=== PATIENT | male | born 1955 | race Caucasian/White ===

== ENCOUNTER 2024-11-10 12:50 | Outpatient (CLI) | payer OTHER, SELFPAY ==
--- OUTSIDE RECORDS SUMMARY | 2024-11-10 13:54 | XMS_ITS | Encounter Summary ---
Author Organization [facility] Address [facility] [place] [address] Care Team Providers Care Costume Technician Name Role Phone Omar Gardiner DO Primary Care Provider [phone] Encounter Details Date Type Department Care Team (Late Contact Info) Description 04/14/2024 MyChart Message Enc [facility] 5 [place] [address] Omar Gardiner DO [address] [place] [address] Dizziness Social History Tobacco Use Types Packs/Day Years Used Date Smoking Tobacco: Former Cigarettes 3 35 0 10/31/1974 - 10/31/2009 Smokeless Tobacco: Never Alcohol Use Standard Drinks/Week Comments Not Currently 13.3 (1 standard dri nk = 0.6 oz pure alcohol) pt has about 8 beers a day PHQ-2 Answer Date Recorded Patient Health Questionnaire-2 Score 2 09/10/2022 Sex and Gender Information Value Date Recorded Sex Assigned at Not on file Legal Sex Male 11:43 AM LITERARY AGENT Gender Identity Not on file Sexual Orientation Not on file documented as of this encounter Plan of Treatment Upcoming Encounters Date Type Department Care Team (Late Contact Info) Description 05/25/2025 2:20 PM CDT Office Visit [facility] 5 [place] [address] Omar Gardiner DO [address] [place] [address] documented as of this encounter Visit Diagnoses Not on filedocumented in this encounter Additional Health Concerns Assessment Noted Time PHQ-9 Depression Total Score: 6 09/10/19 23 9:06 AM LITERARY AGENT documented as of this encounter Care Teams Costume Technician Relationship Specialty Start Date End Date Omar Gardiner DO [address] [place] [address] PCP - General FAMILY PRACTICE 08/02/22 documented as of this encounter
--- OUTSIDE RECORDS SUMMARY | 2024-11-10 13:54 | XMS_ITS | Encounter Summary ---
Author Organization [facility] Address [facility] [place] [address] Care Team Providers Care Insurance Sales Associate Name Role Phone Omar Gardiner DO Primary Care Provider [phone] Encounter Details Date Type Department Care Team (Late Contact Info) Description 12/01/2022 [facility] [employer] Message Enc [facility] - [place] [address] [place] [address] Omar Gardiner DO 5 [place] [address] Upcoming lipid panel. Social History Tobacco Use Types Packs/Day Years [...] on file Legal Sex Male 11:43 AM WEB SOLUTIONS ARCHITECT Gender Identity Not on file Sexual Orientation Not on file COVID-19 Exposure Response Date Recorded In the last 10 days, have yo u been in contact with someone who was confirmed or suspected to have Coronavirus/COVID-19? No / Unsure 11/13/2022 3:11 PM CDT documented as of this encounter Plan of Treatment Upcoming Encounters Date Type Department Care Team (Late Contact Info) Description 05/25/2025 2:20 PM CDT Office Visit [facility] Family Medicine - [place] 5 [facility] [place] [address] Omar Gardiner DO [address] [place] [address] documented as of this encounter Visit Diagnoses Not on filedocumented in this encounter Additional Health Concerns Assessment Noted Time PHQ-9 Depression Total Score: 6 09/10/19 23 9:06 AM WEB SOLUTIONS ARCHITECT documented as of this encounter Care Teams Insurance Sales Associate Relationship Specialty Start Date End Date Omar Gardiner DO [address] [place] [address] PCP - General FAMILY PRACTICE 08/02/22 documented as of this encounter
--- OUTSIDE RECORDS SUMMARY | 2024-11-10 13:55 | XMS_ITS | Encounter Summary ---
Author Organization [facility] Address [facility] [place] [address] Care Team Providers Care Cement Sack Breaker Name Role Phone Omar Gardiner DO Primary Care Provider Encounter Details Date Type Department Care Team (Late Contact Info) Description 10/08/2022 [employer] Message Enc [facility] Family Medicine - [place] [address] [place] [address] Omar Gardiner DO 5 [place] [address] Physical therapy for my hip Social History Tobacco Use Types Packs/Day Years Used Date Smoking Tobacco: Former Cigarettes 3 35 Smokeless Tobacco: Never Alcohol Use Standard Drinks/Week Comments Not Currently 13.3 (1 standard dri nk = 0.6 oz pure alcohol) pt has about 8 beers a day PHQ-2 Answer Date Recorded Patient Health Questionnaire-2 Score 2 09/10/2022 Sex and Gender Information Value Date Recorded Sex Assigned at Not on file Legal Sex Male 11:43 AM FINANCIAL FOUNDATIONS REPRESENTATIVE Gender Identity Not on file Sexual Orientation Not on file COVID-19 Exposure Response Date Recorded In the last 10 days, have yo u been in contact with someone who was confirmed or suspected to have Coronavirus/COVID-19? No / Unsure 10/08/2022 8:47 AM FINANCIAL FOUNDATIONS REPRESENTATIVE documented as of this encounter Plan of Treatment Upcoming Encounters Date Type Department Care Team (Late Contact Info) Description 05/25/2025 2:20 PM CDT Office Visit [facility] Family Medicine - [place] [address] [place] [address] Omar Gardiner DO [address] [place] [address] documented as of this encounter Visit Diagnoses Not on filedocumented in this encounter Additional Health Concerns Assessment Noted Time PHQ-9 Depression Total Score: 6 09/10/19 23 9:06 AM FINANCIAL FOUNDATIONS REPRESENTATIVE documented as of this encounter Care Teams Cement Sack Breaker Relationship Specialty Start Date End Date Omar Gardiner DO [address] [place] [address] PCP - General FAMILY PRACTICE 08/02/22 documented as of this encounter
--- OUTSIDE RECORDS SUMMARY | 2024-11-10 13:55 | XMS_ITS | Encounter Summary ---
Author Organization [facility] Address [address] [place] [address] Care Team Providers Care Environmental Services Attendant Name Role Phone Omar Gardiner DO Primary Care Provider Encounter Details Date Type Department Care Team (Late Contact Info) Description 10/03/2022 [employer] Message Enc [facility] 5 [place] [address] Omar Gardiner DO [address] [place] [address] Lipid panel Social History Tobacco Use Types Packs/Day Years Used Date Smoking Tobacco: Former Cigarettes Smokeless Tobacco: Never Alcohol Use Standard Drinks/Week Comments Yes 13.3 (1 standard drink = 0.6 oz pure alcohol) pt has about 8 beers a day PHQ-2 Answer Date Recorded Patient Health Questionnaire-2 Score 2 09/10/2022 Sex and Gender Information Value Date Recorded Sex Assigned at Not on file Legal Sex Male 11:43 AM JEWELRY MOLD MAKER Gender Identity Not on file Sexual Orientation Not on file COVID-19 Exposure Response Date Recorded In the last 10 days, have yo u been in contact with someone who was confirmed or suspected to have Coronavirus/COVID-19? No / Unsure 10/03/2022 9:00 AM JEWELRY MOLD MAKER documented as of this encounter Plan of Treatment Upcoming Encounters Date Type Department Care Team (Late Contact Info) Description 05/25/2025 2:20 PM CDT [facility] [address] [place] [address] Omar Gardiner DO [address] [place] [address] documented as of this encounter Visit Diagnoses Not on filedocumented in this encounter Additional Health Concerns Assessment Noted Time PHQ-9 Depression Total Score: 6 09/10/19 23 9:06 AM JEWELRY MOLD MAKER documented as of this encounter Care Teams Environmental Services Attendant Relationship Specialty Start Date End Date Omar Gardiner DO [address] [place], [place] [id number] PCP - General FAMILY PRACTICE 08/02/22 documented as of this encounter
--- OUTSIDE RECORDS SUMMARY | 2024-11-10 13:55 | XMS_ITS | Clinical Summary ---
Author Organization [facility] Address [facility] [place] [address] Care Team Providers Care Artificial Limb Maker Name Role Phone AbdifatahYanni proctor Primary Care Provider [phone] Allergies No known active allergies Medications sildenafil (VIAGRA) 100 MG tablet Take 1 tablet (100 mg total) by mouth daily as needed for Erectile Dysfunction. Active aspirin 81 MG chewable tabletIndications :Primary hypertension Chew 1 tablet (81 mg total) by mouth daily. 30 tablet 3 Active amLODIPine (NORVASC) 10 MG tabletIndications :Primary hypertension Take 1 tablet (10 mg total) by mouth daily. 90 tablet 3 4 Active lisinopril (PRINIVIL) 20 MG tabletIndications :Primary hypertension Take 1 tablet (20 mg total) by mouth daily. 90 tablet 3 4 Active Active Problems Problem Noted Date Diagnosed Date Anxiety disorder, unspecified type 05/24/2024 Centrilobular emphysema ([facility]) 2023 intermediate (current) use of aspirin 10/16/2023 Overview (05/24/2024): Last Assessment & Plan: Condition: stable Follow up in: six months with PCP Essential hypertension 10/08/2022 Overview (05/24/2024): Last Assessment & Plan: Condition: stable Source of diagnosis: Vital signs, Medication and Diagnosis confirmed from PCP record and currently active Discussed target blood pressure. Continue medication as prescribed from PCP/specialist. Take medications at the same time every day. Lifestyle modification advised: DASH diet, reduce stress/anxiety, discussed health weight management, activity as tolerated or advised from PCP, try to avoid alcohol and nicotine. Follow up in: six months with PCP Mixed hyperlipidemia 10/08/2022 Uncomplicated alcohol dependence (CMS/HCC HHS/HC C) 09/10/2022 Hepatomegaly 09/10/2022 Resolved Problems Problem Noted Date Diagnosed Date Resolved Date Facial pain 06/25/2023 05/24/2024 Cigarette nicotine dependenc e without complication 10/08/2022 10/08/2022 Encounters Date Type Department Care Team Description 09/23/2024 3:20 PM PRESS SMITH HELPER Office Visit [facility] Family Medicine - [address] [address] Gretel Holloway NP Hearing Problem (Patient wants to see about getting a referral for an Fagot Heater Helper. ) 09/23/2024 Travel from Last 3 Months Immunizations Name Administration Dates Next Due Fluzone High Dose (IIV, trivalent, 0.5mL) 2023 Fluzone High Dose - >Age 65 (Prefilled Syringe) 05/14/2023,09/10/2022 PFIZER COVID-19 (12+) MRNA, LNP-S, PF, ALESSANDRO-SUCROSE, 30 MCG/0.3 ML (COMIRNATY) 05/24/2024 Pneumococcal (Prevnar 20) 10/31/2022 Tdap (Adacel) 09/10/2022 Family History Medical History Relation Comments Vision loss Daughter Vision loss Father Alcohol Abuse Mother Cancer Mother Vision loss Mother Vision loss Sister Vision loss Son Relation Status Comments Daughter Father Mother Sister Son Social History Tobacco Use Types Packs/Day Years Used Date Smoking Tobacco: Former Cigarettes 3 35 0 10/31/1974 - 10/31/2009 Passive Smoke Exposure: Past Smokeless Tobacco: Never Tobacco Cessation:Counseling Given: Not Answered Alcohol Use Standard Drinks/Week Comments Yes 13.3 (1 standard drink = 0.6 oz pure alcohol) pt has about 8 beers a day PHQ-2 Answer Date Recorded Patient Health Questionnaire-2 Score 1 05/24/2024 Sex and Gender Information Value Date Recorded Sex Assigned at Not on file Legal Sex Male 11:43 AM PRESS SMITH HELPER Gender Identity Not on file Sexual Orientation Not on file Last Filed Vital Signs Vital Sign Reading Time Taken Comments Blood Pressure 131/77 09/23/2024 3:42 PM PRESS SMITH HELPER Pulse 72 09/23/2024 3:35 PM PRESS SMITH HELPER Temperature 37.2 C (99 F) 09/23/2024 3:35 PM PRESS SMITH HELPER Respiratory Rate 16 12/05/2022 11:00 AM CDT Oxygen Saturation 98% 09/23/2024 3:35 PM PRESS SMITH HELPER Inhaled Oxygen Concentration - - Weight 83.7 kg (184 lb 8 oz) 09/23/2024 3:35 PM PRESS SMITH HELPER Height 173.1 cm (5' 8.15 ) 09/23/2024 3:35 PM CS T Body Mass Index 27.93 09/23/2024 3:35 PM PRESS SMITH HELPER Plan of Treatment Upcoming Encounters Date Type Department Care Team (Late st Contact Info) Description 05/25/2025 2:20 PM CDT Office Visit [facility] Family Medicine - [address] [id number] Yanni Gardiner, [place] [address] Health Maintenance Due Date Last Done Comments Zoster Vaccines (1 of 2) 2007 RSV Immunization or 60+ Years (1 - Risk 60-74 years 1-dose series) 2017 Annual Medicare Wellness Visit 2022 PHQ-2 (Physician [place]) 08/18/2024 05/24/2024 Lung Cancer Screening 03/04/2025 03/04/2024 , 11/13/2022 Colorectal Cancer Screening FIT-DNA (3 Years) 09/25/2025 09/25/2022, 09/25/2022 DTaP, Tdap and Td Vaccines ( 2 - Td or Tdap) 09/10/2032 09/10/2022 Hepatitis C Completed 09/13/2022 AAA SCREENING Completed 10/03/2022 Pneumococcal Vaccine: 65+ Years Completed 10/31/2022 COVID-19 Vaccine Completed 05/24/2024, 12/15/2020, 11/17/2020 Influenza Adult Completed 05/24/2024, 05/14/2023, 09/10/2022 Meningococcal B Vaccine Aged Out No l onger eligible based on patient's age to complete this topic Meningococcal Vaccine Aged Out No calli markell eligible based on patient's age to complete this topic RSV Immunizations Under 20 Months Aged Out No longer eligible b ased on patient's age to complete this topic Procedures Procedure Name Priority Date/Time Associated Diagnosis Comments CT LUNG SCREENING Routine 03/04/2024 2:4 3 PM CDT Nicotine dependence, cigarettes, in remission US AORTA Routine 10/03/2022 10:41 AM PRESS SMITH HELPER Screening for AAA (abdominal aortic aneurysm) COLOGUARD (EXACT SCIENCE) Routine 09/25/2022 7:52 AM PRESS SMITH HELPER Screening for malignant neoplasm of colon HEPATITIS PANEL,ACUTE Routine 09/13/2022 7:12 PM PRESS SMITH HELPER Hepatomegaly from Last 3 Months or Most Recently Relevant to Health Maintenance Results * CT LUNG SCREENING (03/04/2024 2:43 PM CDT) Anatomical Region Laterality Modality Chest Computed Tomogra phy 03/11/2024 6:09 AM CDT Impressions 03/11/2024 6:14 AM CDT IMPRESSION: 1. LUNG-RADS category 2: Benign, attention on behavior on followup 2. LUNG-RADS category S: Negative 3. Other incidental findings as above. RECOMMENDATIONS: Follow-up LDCT Chest in 12 months (on or around February 2025). Referred By: YANNI GARDINER Interpreted By: Jake Nathan MD, 03/11/2024 6:09 AM Narrative 03/11/2024 6:14 AM CDT EXAM: LUNG SCREENING LOW-DOSE CT THORAX WITHOUT CONTRAST DATE: 03/04/2024 HISTORY: Asymptomatic patient meeting NCCN high-risk criteria for lung screening. Smoking history LUNG CANCER SCREENING, >= 20 PK-YR SMOKING HISTORY (AGE >= 50Y) Is the patient between 50 and 77 years old? Yes Does the patient have any symptoms of or has the patient ever been diagnosed with lung cancer? No Is the patient a current smoker? No Has the patient quit smoking within the last 15 years? Yes What is the approximate date that the patient quit smoking? 14 years ago How many years has the patient smoked? 30 years How many packs per day? 2-3 COMPARISON: 11/13/2022 TECHNIQUE: Noncontrast, helical, low-dose CT (LDCT) chest per standard departmental protocol. Automated exposure control was utilized for dose reduction. FINDINGS: Lung Screening Specific (LUNG-RADS): New tree-in-bud micronodules in RUL, image 58, up to 4 mm size = likely granulomata Old granulomata calcifications Small fissure nodes Potentially Significant Incidentals (LUNG-RADS category S): None. Pulmonary Incidentals: Mild-moderate COPD emphysema with apical scars. Other Incidentals: CAD calcifications. Spondylosis. Procedure Note Jake Nathan MD - 03/11/2024 EXAM: LUNG SCREENING LOW-DOSE CT THORAX WITHOUT CONTRAST DATE: 03/04/2024 HISTORY: Asymptomatic patient meeting NCCN high-risk criteria for lungscreening. Smoking history LUNG CANCER SCREENING, >= 20 PK-YR SMOKING HISTORY (AGE >= 50Y) Is the patient between 50 and 77 years old? Yes Does the patient have any symptoms of or has the patient ever beendiagnosed with lung cancer? No Is the patient a current smoker? No Has the patient quit smoking within the last 15 years? Yes What is the approximate date that the patient quit smoking? 14 years ago How many years has the patient smoked? 30 years How many packs per day? 2-3 COMPARISON: 11/13/2022 TECHNIQUE: Noncontrast, helical, low-dose CT (LDCT) chest per standarddepartmental protocol. Automated exposure control was utilized for dosereduction. FINDINGS: Lung Screening Specific (LUNG-RADS): New tree-in-bud micronodules in RUL, image 58, up to 4 mm size = likelygranulomata Old granulomata calcifications Small fissure nodes Potentially Significant Incidentals (LUNG-RADS category S): None. Pulmonary Incidentals: Mild-moderate COPD emphysema with apical scars. Other Incidentals: CAD calcifications. Spondylosis. IMPRESSION: 1. LUNG-RADS category 2: Benign, attention on behavior on followup 2. LUNG-RADS category S: Negative 3. Other incidental findings as above. RECOMMENDATIONS: Follow-up LDCT Chest in 12 months (on or around February2025). Referred By: YANNI GARDINER Interpreted By: Jake Nathan MD, 03/11/2024 6:09 AM us Yanni Gardiner DO CT Final Resul t * US AORTA (10/03/2022 10:41 AM PRESS SMITH HELPER) Anatomical Region Laterality Modality Abdomen Ultrasound 10/08/2022 1:26 PM PRESS SMITH HELPER Impressions 10/08/2022 1:35 PM PRESS SMITH HELPER =====IMPRESSION:===== Atherosclerotic aorta without evidence of aneurysmal dilatation. Ordered By: YANNI GARDINER Interpreted By: Surinder Greer MD, 10/08/2022 1:26 PM Narrative 10/08/2022 1:35 PM PRESS SMITH HELPER EXAMINATION: Abdominal Aortic Ultrasound. EXAM DATE/TIME: 10/03/2022 9:38 AM REASON FOR EXAM: AAA Screen COMPARISON: None FINDINGS: Proximal aorta measures 2.6 x 2.2 cm. The aorta measures 2.3 x 2.2 cm. Distal aorta measures 1.6 x 1.5 cm. Aortic contour is somewhat irregular with atherosclerotic plaque. The visualized right and left common iliac arteries measure within normal limits. Procedure Note Surinder Greer MD - 10/08/2022 EXAMINATION: Abdominal Aortic Ultrasound. EXAM DATE/TIME: 10/03/2022 9:38 AM REASON FOR EXAM: AAA Screen COMPARISON: None FINDINGS: Proximal aorta measures 2.6 x 2.2 cm. The aorta measures 2.3 x2.2 cm. Distal aorta measures 1.6 x 1.5 cm. Aortic contour is somewhatirregular with atherosclerotic plaque. The visualized right and leftcommon iliac arteries measure within normal limits. =====IMPRESSION:===== Atherosclerotic aorta without evidence of aneurysmal dilatation. Ordered By: YANNI GARDINER Interpreted By: Surinder Greer MD, 10/08/2022 1:26 PM us Yanni Gardiner DO ULTRASOUND Final Resul t * COLOGUARD (EXACT SCIENCE) (09/25/2022 7:52 AM PRESS SMITH HELPER) COLOGUARD RESULT Negative Negative [employer] (CLIA #:[id number]) Comment: NEGATIVE TEST RESULT. A negative Cologuard result indicates a low likelihood that a colorectal cancer (CRC) or advanced adenoma (adenomatous polyps with more advanced pre-malignant features) is present. The chance that a person with a negative Cologuard test has a colorectal cancer is less than 1 in 1500 (negative predictive value >99.9%) or has an advanced adenoma is less than 5.3% (negative predictive value 94.7%). These data are based on a prospective cross-sectional study of 10,000 individuals at average risk for colorectal cancer who were screened with both Cologuard and colonoscopy. (Acacia Muonz et al, N Engl J Med 2014;370(14):9811-7544) The normal value (reference range) for this assay is negative. COLOGUARD RE-SCREENING RECOMMENDATION: Periodic colorectal cancer screening is an important part of preventive healthcare for asymptomatic individuals at average risk for colorectal cancer. Following a negative Cologuard result, the [place] [employer] Society and U.S. Multi-Society Task Force screening guidelines recommend a Cologuard re-screening interval of 3 years. References: [place] [employer] Guideline for Colorectal Cancer Screening: https://www.cancer.org/cancer/psyca-lfsmwn-dvecjy/nyzfmzlvr-ydodvwhos-jxrrbln/ac s-rec ommendations.html.; Juaquin DK, Paige CR, Janelle SharmaK, Colorectal Cancer Screening: Recommendations for Physicians and Patients from the U.S. Multi-Society Task Force on Colorectal Cancer Screening , Am J Gastroenterology 2017; 112:3686-7458. TEST DESCRIPTION: Composite algorithmic analysis of stool DNA-biomarkers with hemoglobin immunoassay. Quantitative values of individual biomarkers are not reportable and are not associated with individual biomarker result reference ranges. Cologuard is intended for colorectal cancer screening of adults of either sex, 45 years or older, who are at average-risk for colorectal cancer (CRC). Cologuard has been approved for use by the U.S. FDA. The performance of Cologuard was established in a cross sectional study of average-risk adults aged 50-84. Cologuard performance in patients ages 45 to 49 years was estimated by sub-group analysis of near-age groups. Colonoscopies performed for a positive result may find as the most clinically significant lesion: colorectal cancer [4.0%], advanced adenoma (including sessile serrated polyps greater than or equal to 1cm diameter) [20%] or non- advanced adenoma [31%]; or no colorectal neoplasia [45%]. These estimates are derived from a prospective cross-sectional screening study of 10,000 individuals at average risk for colorectal cancer who were screened with both Cologuard and colonoscopy. (Acacia Gold. et al, N Engl J Med 2014;370(14):3026-1231.) Cologuard may produce a false negative or false positive result (no colorectal cancer or precancerous polyp present at colonoscopy follow up). A negative Cologuard test result does not guarantee the absence of CRC or advanced adenoma (pre-cancer). The current Cologuard screening interval is every 3 years. ([place] [employer] and U.S. Multi-Society Task Force). Cologuard performance data in a 10,000 patient pivotal study using colonoscopy as the reference method can be accessed at the following location: www.Hoopla.com/results. Additional description of the Cologuard test process, warnings and precautions can be found at www.[employer]17u.cnrd.com. STOOL STOOL SPECIMEN / Unknown 09/25/2022 7:52 AM PRESS SMITH HELPER 09/26/2022 12:51 PM PRESS SMITH HELPER Yanni Gardiner DO BODY FLUIDS AND STOOLS ORDE RABLES Final Result [employer] ([facility]) [address] [place] [address], [employer] (CLIA #:[id number]) [address] [place] [address] * HEPATITIS PANEL,ACUTE (09/13/2022 7:12 PM PRESS SMITH HELPER) HEPATITIS B SURFACE AG NON-REACT DONAVON NON-REACT DONAVON 09/13/2022 10:22 PM PRESS SMITH HELPER [facility] Comment:HBsAg NOT DETECTED. HEP B CORE IGM NON-REACT DONAVON NON-REACT DONVAON 09/13/2022 10:22 PM PRESS SMITH HELPER [facility] Comment: IgM ANTI HBc NOT DETECTED. DOES NOT EXCLUDE THE POSSIBILITY OF EXPOSURE TO OR INFECTION WITH HBV. NO RETEST REQUIRED. HIGH DOSES OF BIOTIN MAY INTERFERE WITH THIS TEST RESULT. CORRELATION TO CLINICAL HISTORY AND PRESENTATION RECOMMENDED. HAV IGM NON-REACT DONAVON NON-REACT DONAVON 09/13/2022 10:22 PM PRESS SMITH HELPER [facility] Comment: IgM ANTI HAV NOT DETECTED. DOES NOT EXCLUDE THE POSSIBILITY OF EXPOSURE TO OR INFECTION WITH HAV. LEVELS OF IgM ANTI HAV MAY BE BELOW THE CUTOFF IN EARLY INFECTION. HEPATITIS C AB NON-REACT DONAVON NON-REACT DONAVON 09/13/2022 10:22 PM PRESS SMITH HELPER [facility] Comment: ANTIBODIES TO HCV NOT DETECTED. DOES NOT EXCLUDE THE POSSIBILITY OF EXPOSURE TO HCV. 09/13/2022 7:12 PM PRESS SMITH HELPER Yanni Gardiner DO LABORATORY Final Resul t [facility] [address] [place] [address], [id number] from Last 3 Months or Most Recently Relevant to Health Maintenance Insurance Care Teams Artificial Limb Maker Relationship Specialty Start Date End Date Yanni Gardiner DO [address] [place] [address] PCP - General FAMILY PRACTICE 08/02/22
--- OUTSIDE RECORDS SUMMARY | 2024-11-10 13:55 | XMS_ITS | Clinical Summary ---
Author Organization [facility] Address [address] [place] [address] Care Team Providers Care Inpatient Services Rn Name Role Phone Unavailable Primary Care Provider Unavailabl e Source Comments [facility],non-owned Affiliates and Associated Physician Practices is amultiple site organization consisting of ambulatory clinics and hospital sitesin [place], [place], [place]. This disclosure is being madepursuant to the Care Everywhere program and may not contain all information available regarding this patient. Last updated 18.[facility] Social History Tobacco Use Types Packs/Day Years Used Date Smoking Tobacco: Never Assessed Sex and Gender Information Value Date Recorded Sex Assigned at Not on file Gender Identity Not on file Sexual Orientation Not on file Plan of Treatment Health Maintenance Due Date Last Done Comments COLOGUARD (AGES 45-75) - COL ON CA SCREENING 1957 COLON MONITORING 1957 COLONOSCOPY - COLON CA SCREENING 1957 CT COLONOGRAPHY - COLON CA SCREENING 1957 Colorectal Cancer Screening 1957 FIT - COLON CA SCREENING 1957 FLEX SIG - COLON CA SCREENING 1957 LIPID TESTING 1957 HEPATITIS C SCREENING 07/14/1975 DTAP/TDAP/TD VACCINES (1 - Tdap) 1976 PNEUMOCOCCAL VACCINE 50+ (1 of 1 - PCV) 2007 ZOSTER VACCINE (1 of 2) 2007 COVID-19 VACCINE ( - 2023-2 5 season) 2024 INFLUENZA VACCINE (#1) 2024 DEPRESSION SCREENING 08/18/2024 MEDICARE AWV CALENDAR YEAR 2024 Respiratory Syncytial Virus (RSV) Vaccine Pt: or over 60 yrs (1 - 1-dose 75+ series) 2032 HEPATITIS B VACCINE Aged Out No longe r eligible based on patient's age to complete this topic HIB VACCINE Aged Out No longer eligi ble based on patient's age to complete this topic HPV VACCINE Aged Out No longer eligi ble based on patient's age to complete this topic MENINGOCOCCAL (Group B) VACC INE SHARED DECISION-MAKING Aged Out No longer eligibl e based on patient's age to complete this topic MENINGOCOCCAL GROUPS A/C/Y/W VACCINE Aged Out No longer eligible b ased on patient's age to complete this topic
--- OUTSIDE RECORDS SUMMARY | 2024-11-10 13:55 | XMS_ITS | Encounter Summary ---
Author Organization [facility] Address [address] [place] [id number] Care Team Providers Care Transit Planning Manager Name Role Phone Omar Gardiner DO Primary Care Provider Encounter Details Date Type Department Care Team (Late Contact Info) Description 09/15/2022 [employer] Message Enc [facility] [address] [place] [address] Omar Gardiner DO [address] [place] [id number] Test results Social History Tobacco Use Types Packs/Day Years [...] on file Legal Sex Male 11:43 AM [employer] Gender Identity Not on file Sexual Orientation Not on file COVID-19 Exposure Response Date Recorded In the last 10 days, have yo u been in contact with someone who was confirmed or suspected to have Coronavirus/COVID-19? No / Unsure 09/18/2022 2:45 PM [employer] documented as of this encounter Plan of Treatment Upcoming Encounters Date Type Department Care Team (Late Contact Info) Description 05/25/2025 2:20 PM CDT Office Visit [facility] [address] [place] [address] Omar Gardiner DO [address] [place] [address] documented as of this encounter Visit Diagnoses Not on filedocumented in this encounter Additional Health Concerns Assessment Noted Time PHQ-9 Depression Total Score: 6 09/10/19 23 9:06 AM [employer] documented as of this encounter Care Teams Transit Planning Manager Relationship Specialty Start Date End Date Omar Gardiner DO [address] [place], [place] [id number] PCP - General FAMILY PRACTICE 08/02/22 documented as of this encounter
== END 2024-11-10 12:51 | disposition home or self-care (01) ==
PROVIDERS: Visit Provider Nurse Practitioner
DX: H90.3 Sensorineural hearing loss, bilateral (principal)
CPT/HCPCS: 92557; 92567